=== PATIENT | female | born 1965 | race Caucasian/White ===

== ENCOUNTER 2016-09-13 12:50 | Emergency (ER) | payer MEDICARE | END 2016-09-13 14:10 | disposition home or self-care (01) | LOC: ER 12:50 | DX: H66.91 Otitis media, unspecified, right ear (principal); R42 Dizziness and giddiness; J02.9 Acute pharyngitis, unspecified; F17.210 Nicotine dependence, cigarettes, uncomplicated; Z79.899 Other long term (current) drug therapy | CPT/HCPCS: 96372; 99283-25 ==